=== PATIENT | female | born 1965 | race Caucasian/White ===

== ENCOUNTER 2024-04-02 20:01 | Emergency (ER) | payer OTHER, BC, SELFPAY ==
[2024-04-02 20:10] VITALS: BP 133/86; PULSE 80; RESP 18; TEMP 36.3; O2SAT 96
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
== END 2024-04-02 20:44 | disposition home or self-care (01) ==
PROVIDERS: Emergency Provider Nurse Practitioner; PCP Family Medicine
DX: S39.012A Strain of muscle, fascia and tendon of lower back, initial encounter (principal); V42.5XXA Car driver injured in collision with two- or three-wheeled motor vehicle in traffic accident, initial encounter
CPT/HCPCS: 99203; G0463

== ENCOUNTER 2024-06-13 16:21 | Emergency (ER) | payer BC, SELFPAY ==
--- NOTE | ~2024-06-13 | XR_ITS ---
XR foot LT min 3V DATE: 06/13/2024 16:55 INDICATION: Stubbed toe. Fourth digit pain. TECHNIQUE: 4 views COMPARISON: None FINDINGS: There is a nondisplaced linear oblique fracture of the proximal to mid shaft of the fourth toe. No other fracture or dislocation. Mild plantar and posterior calcaneal enthesopathy. IMPRESSION: Nondisplaced fracture proximal phalanx of fourth digit Reviewed, dictated and finalized at location A. ER APPRENTICE
[2024-06-13 16:23] VITALS: BP 125/78; PULSE 77; RESP 17; TEMP 36.6; O2SAT 97
--- NOTE | 2024-06-13 17:53 | ED.GENADULT ---
HPI - General Adult General Chief complaint: Extremity Injury, Lower Stated complaint: Toe Injury Source: patient Mode of arrival: ambulatory Limitations: no limitations History of Present Illness HPI narrative: Patient presents for evaluation of left foot pain for the last week. She indicates she stubbed her foot against a piece of furniture. She was not wearing shoes. She now has 5/10 pain in the fourth digit with palpation. At rest her pain is less severe. She denies paresthesias. She is not diabetic. She took 800mg ibuprofen for her symptoms but is unsure whether it made a considerable difference in her symptoms. Related Data Home Medications Medication Instructions Recorded Confirmed cholecalciferol (vitamin D3) 25 25 mcg PO DAILY 06/13/24 06/13/24 mcg (1,000 unit) tablet (Vitamin D3) sertraline 50 mg tablet 50 mg PO DAILY 06/13/24 06/13/24 Allergies Allergy/AdvReac Type Severity Reaction Status Date / Time No Known Allergies Allergy Verified 06/13/24 16:41 Review of Systems Review of Systems: CONSTITUTIONAL: Denies fever, chills, or sweats. EYES: Denies visual changes, redness, or discharge. ENT: Denies rhinorrhea, congestion, sore throat, or otalgia. CARDIOVASCULAR: Denies chest pain, palpitations, or edema. RESPIRATORY: Denies cough or dyspnea. GASTROINTESTINAL: Denies abdominal pain, nausea, vomiting, or diarrhea. GENITOURINARY: Denies dysuria or hematuria. SKIN: Denies rash or itching. MUSCULOSKELETAL: Reports left foot pain NEUROLOGIC: Denies headache, numbness, dizziness, or weakness. PSYCHIATRIC: Denies anxiety or depression. [facility] Past Medical History Medical History No pertinent past medical history Surgical History Surgical History No pertinent past surgical history Family History Family History Mother Family history non-contributory Social History Social History Gender identity (if verbalized by the patient): Female Spiritual care concerns: No Exam Narrative: GENERAL: Well-appearing, well-nourished, and in no acute distress. HEAD: Normocephalic, atraumatic. EYES: PERRLA and EOMI. ENT: Nares clear, no rhinorrhea or epistaxis. Mucous membranes moist. Oropharynx without tonsillar hypertrophy exudate or other lesions. Bilateral TMs pearly arrington nonbulging NECK: Supple. No adenopathy or masses. No carotid bruits or JVD CHEST: Clear to auscultation. No respiratory distress. No wheezes rales or rhonchi HEART: Regular rate and rhythm. No murmur heard. Normal peripheral pulses. ABDOMEN: Soft, nontender, nondistended, normal active bowel sounds. EXTREMITIES: Normal range of motion. No edema. There is tenderness in the proximal phalanx and MTP joint of the 4th digit of the left foot SKIN: Warm, dry, no rash. NEURO: No focal deficits. Alert and oriented x3. PSYCH: Normal mood and affect. Course Course Emergency Course: this is a 59-year-old female who presented for evaluation of left foot pain. X-ray showed proximal phalanx fracture of the 4th digit left foot. Fourth and 5th digits were eulogio-taped. She was provided with a postop shoe. Will DC with tramadol. Follow-up outpatient for further evaluation and go to the emergency department for intractable pain. Patient in agreement with plan of care. Level of Care: Express Care Visit Vital Signs Vital signs: Vital Signs Temperature 36.6 C 06/13/24 16:23 Pulse Rate 77 06/13/24 16:23 Respiratory Rate 17 06/13/24 16:23 Blood Pressure 125/78 06/13/24 16:23 Pulse Oximetry 97 06/13/24 16:23 Oxygen Delivery Room Air 06/13/24 16:23 Temperature 36.6 C 06/13/24 16:23 Pulse Rate 77 06/13/24 16:23 Respiratory Rate 17 06/13/24 16:23 Blood Pressure 125/78 06/13/24 16:23 Pulse Oximetry 97 06/13/24 16:23 Oxygen Delivery Room Air 06/13/24 16:23 Medical Decision Making Vital Signs Vital Signs: Vital Signs Temperature 36.6 C 06/13/24 16:23 Pulse Rate 77 06/13/24 16:23 Respiratory Rate 17 06/13/24 16:23 Blood Pressure 125/78 06/13/24 16:23 Pulse Oximetry 97 06/13/24 16:23 Oxygen Delivery Room Air 06/13/24 16:23 Temperature 36.6 C 06/13/24 16:23 Pulse Rate 77 06/13/24 16:23 Respiratory Rate 17 06/13/24 16:23 Blood Pressure 125/78 06/13/24 16:23 Pulse Oximetry 97 06/13/24 16:23 Oxygen Delivery Room Air 06/13/24 16:23 Imaging Data Radiologist's impression: XR foot LT min 3V DATE: 06/13/2024 16:55 INDICATION: Stubbed toe. Fourth digit pain. TECHNIQUE: 4 views COMPARISON: None FINDINGS: There is a nondisplaced linear oblique fracture of the proximal to mid shaft of the fourth toe. No other fracture or dislocation. Mild plantar and posterior calcaneal enthesopathy. IMPRESSION: Nondisplaced fracture proximal phalanx of fourth digit Discharge Plan Discharge Clinical Impression: Closed fracture of proximal phalanx of lesser toe of left foot Patient Disposition: Home, Self-Care Condition: Stable Instructions: Antibiotic Form, Toe Fracture (ED) Patient Language: Nepali Prescriptions: New tramadol 50 mg tablet 50 mg PO Q6H PRN (Reason: pain) Qty: 10 0RF No Action cholecalciferol (vitamin D3) [Vitamin D3] 25 mcg (1,000 unit) tablet 25 mcg PO DAILY sertraline 50 mg tablet 50 mg PO DAILY Follow-up/Referrals: Elvis,Dayanara Witt DPM [Non-Staff] - Felix,Kaylee Eng MD [Primary Care Provider] - Time of Disposition: 17:15
== END 2024-06-13 17:25 | disposition home or self-care (01) ==
PROVIDERS: Emergency Provider Nurse Practitioner; PCP Family Medicine
DX: S92.515A Nondisplaced fracture of proximal phalanx of left lesser toe(s), initial encounter for closed fracture (principal); W22.03XA Walked into furniture, initial encounter
CPT/HCPCS: 73630; 99214; G0463

== ENCOUNTER 2024-07-13 09:01 | Emergency (ER) | payer BC, SELFPAY ==
[2024-07-13 09:06] VITALS: BP 134/85; PULSE 80; RESP 20; TEMP 36.6; O2SAT 95
--- NOTE | 2024-07-13 09:51 | ED_ITS ---
HPI - URI/Sore Throat General Chief Complaint: Upper Respiratory Infection Stated Complaint: congestion/ears/cough Time Seen by Provider: 07/13/24 09:51 Source: patient, RN notes reviewed and old records reviewed Mode of arrival: ambulatory Limitations: no limitations History of Present Illness HPI Narrative: 59-year-old female presents to [facility] with complaints of having some right ear discomfort with inability to hear since from her right ear with sinus congestion and some drainage and some occasional cough. Patient reports no acute cough or feelings of shortness of breath. Patient reports that she has taken some Mucinex for her symptoms and had used some ear wax drops to her right ear but continues to not be able to ear from her right ear.Patient reports no fevers, chills or sweats. MD elicited complaint: rhinorrhea, nasal congestion and other (congestion, ears, cough) Onset (ago): day(s) (Since ) Severity: moderate Description of mucous: clear Able to tolerate fluids by mouth: Yes Treatments prior to arrival: other (Mucinex and ear wax) Related Data Home Medications ?Medication ?Instructions ?Recorded ?Confirmed ?Last Taken ?Type cholecalciferol (vitamin D3) 25 25 mcg PO DAILY 06/13/24 06/13/24 Unknown History mcg (1,000 unit) tablet (Vitamin D3) sertraline 50 mg tablet 50 mg PO DAILY 06/13/24 06/13/24 Unknown History Allergies Allergy/AdvReac Type Severity Reaction Status Date / Time sulfamethoxazole (From AdvReac Intermediate DIARRHEA Verified 07/13/24 09:47 Bactrim) trimethoprim (From Bactrim) AdvReac Intermediate DIARRHEA Verified 07/13/24 09:47 Review of Systems Review of Systems: CONSTITUTIONAL: Denies malaise, chills, sweats, or fever. EYES: Denies visual changes, redness, or discharge. ENT: Reports rhinorrhea, congestion, sinus pain, right otalgia and no sore throat. CARDIOVASCULAR: Denies chest pain, palpitations, or edema. RESPIRATORY: Reports occasional cough.? Denies dyspnea. GASTROINTESTINAL: Denies abdominal pain, nausea, vomiting, diarrhea SKIN: Denies rash or itching. MUSCULOSKELETAL: Denies myalgia. NEUROLOGIC: Denies headache. All systems reviewed & are unremarkable except as noted in HPI and below PMFSH Past Medical History Medical History No pertinent past medical history Surgical History Surgical History No pertinent past surgical history Family History Family History Mother Family history non-contributory Social History Social History Smoking status: Former smoker Additional smoking assessment comments: quit 13 years ago Gender identity (if verbalized by the patient): Female Spiritual care concerns: No Comments At time of signature, agree with nursing past medical, surgical, social and family history. There is no relevant family history pertinent to the presenting complaint Exam Narrative: GENERAL: Well-appearing, well-nourished, and in no acute distress. HEAD: Normocephalic EYES: PERRLA, conjunctivae clear ENT: Nares clear, turbinates edematous and erythematous, clear discharge. Mucous membranes moist. Right TM rd and bulging, Left TM pearly arrington with dull light reflex ; no tragal tenderness. Oropharynx erythematous without lesions. Tonsils not enlarged and without exudate, no drooling, no hoarseness, no trismus, uvula midline.PND NECK: Supple. No lymphadenopathy CHEST: Clear to auscultation, breath sounds equal. No wheezing, rhonchi, rales, or stridor. No respiratory distress, speaks in full sentences. rare dry cough, SAO2 95% on room air HEART: Regular rate and rhythm. No murmur heard. SKIN: Warm, dry, no rash. NEURO: Alert and oriented x3. PSYCH: Normal mood and affect Course Course Emergency Course: Patient is aware of diagnosis, understands and agrees to treatment plan.? Anticipatory guidance given.? Patient agrees to follow-up as directed and is aware of reasons to seek care at the emergency department. Portions of this record may have been created with voice recognition software Level of Care: Express Care Visit Vital Signs Vital signs: Vital Signs Temperature 36.6 C 07/13/24 09:06 Pulse Rate 80 07/13/24 09:06 Respiratory Rate 20 07/13/24 09:06 Blood Pressure 134/85 07/13/24 09:06 Pulse Oximetry 95 07/13/24 09:06 Oxygen Delivery Room Air 07/13/24 09:06 Temperature 36.6 C 07/13/24 09:06 Pulse Rate 80 07/13/24 09:06 Respiratory Rate 20 07/13/24 09:06 Blood Pressure 134/85 07/13/24 09:06 Pulse Oximetry 95 07/13/24 09:06 Oxygen Delivery Room Air 07/13/24 09:06 Reviewed MDM - URI/Sore Throat MDM Narrative Medical decision making narrative: Differential diagnosis considered: Oh virus, strep pharyngitis, allergic rhinitis, upper respiratory tract infection, sinusitis, rhinosinusitis, nasopharyngitis. viral pharyngitis, otitis media, otitis externa, pneumonia, bronchitis, viral cough syndrome, viral syndrome, and influenza.? Exam findings show no acute concerns or changes; patient is non-toxic appearing and is in no distress.? Patient is appropriate for outpatient treatment and follow-up. Differential Diagnosis Differential diagnosis: Likely upper respiratory infection, otitis media, sinusitis, viral infection and other (cough) Medical Records Attestation: I reviewed the patient's medical records. Lab Data Attestation: I reviewed the patient's lab results. Critical Care Time Critical Care Time Critical Care Time: No Discharge Plan Discharge Clinical Impression: Acute right otitis media Patient Disposition: Home, Self-Care Condition: Stable Instructions: Antibiotic Form, Ear Infection (GEN) Additional Instructions: Increase fluids especially juices and water Cgyk-jrq-[id number] cough and cold medicine of your choice for your symptoms Zyrtec or Claritin or Crys daily Steroids as directed--take with food heat to the face 20-30 minutes 4-6 times a day for pain Salt water gargles, throat lozenges or throat sprays as desired Antibiotic as directed--finished the medication If your symptoms persist, change or worsen significantly before you can contact your personal physician then please, without delay, go to the emergency department for further evaluation. Follow-up with PCP in 7-10 days or sooner if needed Follow up with PCP soon in regards to your blood pressure which is elevated above threshold for referral. Blood pressure above 120/80 may indicate pre- hypertension. 134/85 Patient Language: Northern Irish Prescriptions: New amoxicillin-pot clavulanate 875-125 mg tablet 1 tablet PO Q12H Qty: 20 0RF Rx Instructions: Take probiotic or eat activity yogurt while taking this medication methylprednisolone [Medrol (Ugo)] 4 mg tablets,dose pack See Rx Instructions .ROUTE .COMPLEX Qty: 21 0RF Rx Instructions: orally per package directions No Action cholecalciferol (vitamin D3) [Vitamin D3] 25 mcg (1,000 unit) tablet 25 mcg PO DAILY sertraline 50 mg tablet 50 mg PO DAILY Follow-up/Referrals: Felix,Kaylee Eng MD [Primary Care Provider] - Time of Disposition: 10:02 Quality Yaneli Coma Scale Eyes: Open Verbal: Oriented and Alert Motor: Follows Commands Spring Coma Total Score: 15
== END 2024-07-13 10:05 | disposition home or self-care (01) ==
PROVIDERS: Emergency Provider Registered Nurse; PCP Family Medicine
DX: H66.91 Otitis media, unspecified, right ear (principal); Z87.891 Personal history of nicotine dependence
CPT/HCPCS: 99213; G0463

== ENCOUNTER 2025-02-19 16:01 | Emergency (ER) | payer BC, SELFPAY ==
[2025-02-19 16:04] VITALS: BP 151/85; PULSE 90; RESP 16; TEMP 36.6; O2SAT 96
--- OUTSIDE RECORDS SUMMARY | 2025-02-19 16:05 | XMS_ITS | Clinical Summary ---
Author Organization [facility] Address [address] [place] [address] Phone Care Team Providers Care Mortgage Coordinator Name Role Phone Kaylee Washington MD Primary Care Provider [phone] Allergies Active Allergy Reactions Criticality Noted Date Comments Sulfamethoxazole-Trime thoprim Nausea,Anxiety 11/19/2018 Cephalexin Other (see Comments) 04/02/2018 Migraine, diarrhea Medications ibuprofen (MOTRIN) 800 MG Tablet Take 1 Tab by mouth every 8 hours as needed for Pain. 30 Tab 0 6 Active meclizine (ANTIVERT) 25 MG Chewable Tablet Take 1 Tab by mouth every 8 hours as needed for Dizziness. 15 Tab 8 Active ondansetron (ZOFRAN ODT) 4 MG TABLET DISPERSIBLE Take 1 Tab by mouth every 8 hours as needed for Nausea - 1st line. 12 Tab 8 Active FLUoxetine (PROZAC) 20 MG Capsule Take 20 mg by mouth daily. Active HYDROcodone-acet aminophen (NORCO) 5-325 MG Tablet Take 1 Tab by mouth every 8 hours as needed for Mild or more severe pain. 15 Tab 8 Active HYDROcodone-acet aminophen (NORCO) 5-325 MG Tablet Take 1 Tab by mouth every 6 hours as needed for Moderate or more severe pain. 10 Tab 8 Active Multiple Vitamin (MULTIVITAMINS PO) Take by mouth. 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, [employer] Encounter for screening mammogram for malignant neoplasm of breast (Primary Dx) from Last 3 Months Immunizations Immunization Administration Dates Next Due TDAP Vaccine 05/26/2022,04/22/2017 Social History Tobacco Use Types Packs/Day Years Used Date Smoking Tobacco: Former Cigarettes Q uit: 10/03/2013 Smokeless Tobacco: Never Alcohol Use Standard Drinks/Week Comments No 0 (1 standard drink = 0.6 oz pur e alcohol) Comments No Sex and Gender Information Value Date Recorded Sex Assigned at Not on file Legal Sex Female 11:37 PM CDT Gender Identity Not on file Sexual Orientation Not on file Last Filed Vital Signs Vital Sign Reading Time Taken Comments Blood Pressure 122/79 05/26/2022 7:44 PM [employer] Pulse 98 05/26/2022 7:44 PM [employer] Temperature 36.6 C (97.9 F) 05/26/2022 7:44 PM [employer] Respiratory Rate 17 05/26/2022 7:44 PM [employer] Oxygen Saturation 98% 05/26/2022 7:44 PM [employer] Inhaled Oxygen Concentration - - Weight 90.3 kg (199 lb) 05/26/2022 5:48 PM [employer] Height 167.6 cm (5' 6) 05/26/2022 5:48 PM [employer] Body Mass Index 32.12 05/26/2022 5:48 PM [employer] Plan of Treatment Health Maintenance Due Date Last Done Comments Hepatitis C Virus (HCV) Screening 1967 Mammogram 1967 Hepatitis B Immunization (1 of 3 - 19+ 3-dose series) 1986 Pap Smear 1988 Cervical Cancer Screening (CCS) 1997 HPV/Cotest 1997 Cologuard 2012 Colonoscopy 2012 Colorectal Cancer Screening 2012 Immunochemical Fecal Occult Blood 2012 Pneumococcal Immunization (5 0+ years) (1 of 1 - PCV) 2017 Zoster Immunization (1 of 2) 2017 SARS-COV-2 Immunization (1 - 2023- season) 2024 Influenza Immunization (#1) 2025 Respiratory Syncytial Virus (RSV) Immunization (Adult) (1 - 1-dose 75+ series) 2042 DTaP/Tdap/Td Immunization Discontinued 2021, 04/22/2017 Human Papillomavirus (HPV) Immunization Aged Out No longer eligible based on patient's age to complete this topic Meningococcal Immunization (ACWY) Aged Out No longer eligible based on patient's age to complete this topic Rotavirus Immunization Aged Out No lo nger eligible based on patient's age to complete this topic Insurance [place]ICA[place] Care Teams Mortgage Coordinator Relationship Specialty Start Date End Date Kaylee Washington MD [address] [place] [address] [place] [id number] PCP - General Family Medicine 10/17/23
--- OUTSIDE RECORDS SUMMARY | 2025-02-19 16:05 | XMS_ITS | Clinical Summary ---
Author Organization [facility] [address] [facility] [address] Address [address] [place] [address] Care Team Providers Care Molasses And Caramel Operator Name Role Phone No, Physician Primary Care Provider [phone] Allergies No known active allergies Medications ibuprofen (ADVIL,MOTRIN) 800 mg tablet Take 800 mg by mouth every 8 (eight) hours as needed 6 Active phentermine-topirama te 3.75-23 mg capsule, ER multiphase 24 hr Take by mouth daily Active azithromycin (ZITHROMAX) 250 mg tabletIndications:Ac vicky nasopharyngitis Take 2 tablets the first day, then 1 tablet daily for 4 days. 6 tablet 1 Active Active Problems No known active problems Surgical History Surgery Date Site/Laterality Comments NO PAST SURGERIES Medical History Medical History Date Comments No pertinent past medical history Family History Medical History Relation Name Comments Cervical cancer Sister Relation Name Status Comments Sister Social History Tobacco Use Types Packs/Day Years Used Date Smoking Tobacco: Former Cigarettes 0 03/07/1987 - 03/07/2014 Smokeless Tobacco: Never Personal Safety Answer Date Recorded Getting School Help Needed Not on file 08/08 Comments Unknown Sex and Gender Information Value Date Recorded Sex Assigned at Not on file 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 Gender Identity Not on file Sexual Orientation Not on file Obstetrics History Last Filed Vital Signs Vital Sign Reading Time Taken Comments Blood Pressure 114/66 04/20/2021 10:19 AM CDT Pulse 92 04/20/2021 10:19 AM CDT Temperature 36.8 C (98.2 F) 04/20/2021 10:19 AM CDT Respiratory Rate 16 04/20/2021 10:19 AM CDT Oxygen Saturation 92% 04/20/2021 10:19 AM CDT Inhaled Oxygen Concentration - - Weight 90.7 kg (200 lb) 04/20/2021 10:19 AM CDT Height 167.6 cm (5' 6) 04/20/2021 10:19 AM CDT Body Mass Index 32.28 04/20/2021 10:19 AM CDT Plan of Treatment Not on file Insurance [facility] Care Teams Molasses And Caramel Operator Relationship Specialty Start Date End Date No, Physician PCP - General 03/07/21
[2025-02-19 16:16] LABS: EDUAAPPEAR Clear; EDUABILI Negative (Negative); EDUABLOOD Negative (Negative); EDUACOLOR1 Tea Colored; EDUAGLUCOSE Negative (Negative); EDUAKETONE Negative (Negative); EDUALEUKO 1+ (Negative); EDUANITRATE Negative (Negative); EDUAPH 6.0; EDUAPROTEIN Negative (Negative); EDUASPGRAVITY 1.015; EDUAUROBILI 0.2
--- NOTE | 2025-02-19 16:18 | ED_ITS ---
HPI - Female Genitourinary General Chief complaint: Urogenital-Female Stated complaint: Urinary Problem Time Seen by Provider: 02/19/25 16:02 Source: patient Mode of arrival: ambulatory Limitations: no limitations History of Present Illness HPI Narrative: 59-year-old female presents to [facility] with complaints of urinary frequency, urgency and burning for the past 4-5 days. Patient has vaginal discharge, vagi nal bleeding, vaginal odor, vaginal itching, abdominal pain, back pain, fever, body aches, chills, nausea vomiting or diarrhea. Patient denies concerns for STDs. Patient reports that she does have a history of urinary tract infections. MD elicited complaint: dysuria and UTI Onset (ago): day(s) (4-5) Vaginal discharge: none Vaginal bleeding: none Urinary symptoms: Dysuria, Urgency and Frequency Related Data Home Medications ?Medication ?Instructions ?Recorded ?Confirmed ?Last Taken ?Type phentermine 37.5 mg tablet mg 02/19/25 Unknown History Allergies Allergy/AdvReac Type Severity Reaction Status Date / Time sulfamethoxazole (From AdvReac Intermediate DIARRHEA Verified 02/19/25 16:08 Bactrim) trimethoprim (From Bactrim) AdvReac Intermediate DIARRHEA Verified 02/19/25 16:08 Review of Systems Constitutional: Constitutional: Denies chills and Denies fatigue ENT: Denies vertigo, Denies dizziness, Denies nasal congestion and Denies sore throat Cardiovascular: Cardiovascular: Denies chest pain Respiratory: Respiratory: Denies cough, Denies dyspnea and Denies wheezing Gastrointestinal: Gastrointestinal: Denies diarrhea, Denies nausea and Denies vomiting Genitourinary: Genitourinary: Denies abnormal vaginal bleeding, Denies hematuria, Reports nocturia, Denies genital lesions, Reports dysuria, Denies pelvic pain, Denies flank pain, Denies urinary incontinence and Denies vaginal discharge Musculoskeletal: Musculoskeletal: Denies arthralgias and Denies joint swelling Integumentary/Breasts: Skin/Breast: Denies pruritus, Denies erythema and Denies rash Neurologic: Denies syncope and Denies headache(s) [facility] Past Medical History Medical History No pertinent past medical history Surgical History Surgical History No pertinent past surgical history Family History Family History Mother Family history non-contributory Social History Social History Smoking status: Former smoker Additional smoking assessment comments: quit 13 years ago Gender identity (if verbalized by the patient): Female Spiritual care concerns: No Comments At time of signature, I agree with nursing past medical, surgical, social and family history. There is no relevant family history pertinent to the presenting complaint. Exam Const: General: healthy appearing and no acute distress Nutritional Appearance: well nourished Orientation/consciousness: patient oriented x3 Limitations: no limitations HENMT: Head: normal to inspection Eyes: Conjunctivae: conjunctivae normal Neck: Neck: normal visual inspection Resp: Effort & Inspection: normal respiratory effort and not labored Aus cultation: clear to auscultation bilaterally, no crackles, no rales and no rhonchi Cardio: Rate: regular rate Rhythm: regular rhythm Heart sounds: no murmurs : General: Yes bladder normal to palpation and Yes no CVA tenderness Back/Spine/Pelvis: Back: no CVA tenderness Skin: General skin exam: normal color Rashes: no rashes Wounds: no wounds Neuro: General: patient oriented x3 Gait exam (Neuro): Normal gait present Extrem: General: normal to inspection Psych: Appearance: grossly normal and well kempt Affect: normal affect Attitude: cooperative Course Course Level of Care: Express Care Visit Vital Signs Vital signs: Vital Signs Temperature 36.6 C 02/19/25 16:04 Pulse Rate 90 02/19/25 16:04 Respiratory Rate 16 02/19/25 16:04 Blood Pressure 151/85 H 02/19/25 16:04 Pulse Oximetry 96 02/19/25 16:04 Oxygen Delivery Room Air 02/19/25 16:04 Temperature 36.6 C 02/19/25 16:04 Pulse Rate 90 02/19/25 16:04 Respiratory Rate 16 02/19/25 16:04 Blood Pressure 151/85 H 02/19/25 16:04 Pulse Oximetry 96 02/19/25 16:04 Oxygen Delivery Room Air 02/19/25 16:04 MDM - Female Genitourinary MDM Narrative Medical decision making narrative: Urinalysis results discussed with patient. Urine will be sent for culture at this time. Will start patient on antibiotic pending culture results. Encouraged patient to monitor symptoms closely and to proceed to the emergency room if symptoms worsen Differential Diagnosis Differential diagnosis: Likely urinary tract infection, bacterial vaginosis and cervicitis Lab Data Labs: Lab Results 02/19/25 Range/Units 16:14 POC Urine Color Tea colored POC Urine Clarity Clear POC Urine pH 6.0 POC Ur Specif [place] 1.015 POC Urine Protein Negative (Negative) POC Ur Glucose (UA) Negative (Negative) POC Urine Ketones Negative (Negative) POC Urine Blood Negative (Negative) POC Urine Nitrite Negative (Negative) POC Urine Bilirubin Negative (Negative) POC Urine Urobilinogen 0.2 POC U Leukocyte Esteras 1+ (Negative) Critical Care Time Critical Care Time Critical Care Time: No Discharge Plan Discharge Clinical Impression: Urinary tract infection Qualifiers: Urinary tract infection type: site unspecified Hematuria presence: without hematuria Qualified Code(s): N39.0 - Urinary tract infection, site not specified Patient Disposition: Home Condition: Stable Instructions: Urinary Tract Infection in Women (ED) Additional Instructions: Increase fluids especially water Avoid caffeine and carbonated beverages Take the entire course of antibiotic as directed We will send a urine culture off to the lab. If the culture identifies an organism that the prescribed antibiotic will not treat, you will receive a phone call from an urgent care staff member and an appropriate antibiotic will be prescribed. If the urine culture fails to identify an organism, you should follow up with your primary care doctor who can then refer you to a urologist for further testing. Tylenol/ibuprofen for pain or fever Follow-up with your primary care provider if further problems or concerns Patient Language: Mauritian Prescriptions: New nitrofurantoin monohyd/m-cryst [Macrobid] 100 mg capsule 100 mg PO Q12H 5 Days Qty: 10 0RF Rx Instructions: must administer with a meal/food No Action phentermine 37.5 mg tablet Follow-up/Referrals: Trupti Mathias RN [Primary Care Provider] - Time of Disposition: 16:21
== END 2025-02-19 16:28 | disposition home or self-care (01) ==
PROVIDERS: Emergency Provider Nurse Practitioner Family; PCP Nurse Practitioner Family
DX: N39.0 Urinary tract infection, site not specified (principal); Z87.891 Personal history of nicotine dependence
CPT/HCPCS: 81003; 87086; 99213; G0463